=== PATIENT | female | born 1995 | race Caucasian/White ===

== ENCOUNTER 2016-07-04 17:45 | Emergency (ER) | payer OTHER ==
[2016-07-04 17:53] VITALS: BP 107/66; PULSE 87; TEMP 98.2; BMI 26.9
--- NOTE | 2016-07-04 17:55 | PDOC ---
Rapid Medical Evaluation Chief Complaint: Urinary Problem Time Seen by Provider: 07/04/16 17:53 Medical Evaluation: Allergies Allergy/AdvReac Type Severity Reaction Status Date / Time No Known Allergies Allergy Verified 07/04/16 17:54 Vital Signs Temp Pulse Resp BP Pulse Ox 98.2 F 87 18 107/66 97 07/04/16 17:51 07/04/16 17:51 07/04/16 17:51 07/04/16 17:51 07/04/16 17:51 07/04/16 17:54 RME Note: I have performed a brief, in-person evaluation of this patient . This patient presents with CC: dysuria x 2 days Pertinent PE findings are: VSS I have ordered: UA, U preg The patient will proceed to ED for further evaluation. JR
[2016-07-04 18:30] LABS: URINE APPEARANCE CLEAR; URINE BILIRUBIN NEGATIVE (NEGATIVE); URINE COLOR RED; URINE GLUCOSE (UA) 1+ (NEGATIVE); URINE KETONE NEGATIVE (NEGATIVE); URINE LEUK ESTERASE NEGATIVE (NEGATIVE); URINE NITRITE POSITIVE (NEGATIVE); URINE UROBILINOGEN 4.0 E.U/dl E.U./dl (0.2-1.0)
[2016-07-04 18:31] LABS: URINE BLOOD 3+ (NEGATIVE); URINE PROTEIN 2+ (NEGATIVE)
[2016-07-04 18:35] LABS: URINE BACTERIA RARE /hpf (NONE SEEN); URINE MUCUS FEW; URINE RBC 669 /hpf (0-3); URINE WBC 94 /hpf (3-5)
--- NOTE | 2016-07-04 19:05 | PDOC ---
History of Present Illness - General Chief Complaint: Urinary Problem Stated Complaint: URINARY PROBLEM Time Seen by Provider: 07/04/16 17:53 History Source: Patient Exam Limitations: No Limitations - History of Present Illness Travel History: No Initial Comments: 07/04/16 19:00 21 yr female with c/o urianry urgency and burning for 2 days. no fever or chills no back pain or vomiting. no vaginal discharge. 07/04/16 19:01 Timing/Duration: reports: constant Past History - Past Medical History Allergies/Adverse Reactions: Allergies Allergy/AdvReac Type Severity Reaction Status Date / Time No Known Allergies Allergy Verified 07/04/16 17:54 Home Medications: Ambulatory Orders Ibuprofen [Motrin -] 800 mg PO TID #30 tablet 06/27/15 Ciprofloxacin [Cipro -] 250 mg PO BID #6 tablet 07/04/16 Phenazopyridine HCl [Pyridium] 200 mg PO TID PRN #6 tablet 07/04/16 Other medical history: PT DENIES MEDICAL HX - Psycho/Social/Smoking Cessation Hx Suicidal Ideation: No Smoking History: Current some day smoker Number of Cigarettes Smoked Daily: 1 Information on smoking cessation initiated: No Hx Alcohol Use: No Drug/Substance Use Hx: No Substance Use Type: Marijuana Review of Systems - Review of Systems Able to Perform ROS?: Yes Is the patient limited Armenian proficient: No : Yes: Symptoms Reported *Physical Exam - Vital Signs Last Vital Signs Temp Pulse Resp BP Pulse Ox 98.2 F 87 18 107/66 97 07/04/16 17:51 07/04/16 17:51 07/04/16 17:51 07/04/16 17:51 07/04/16 17:51 - Physical Exam General Appearance: Yes: Nourished, Appropriately Dressed HEENT: positive: EOMI, TALIA Neck: negative: Tender Respiratory/Chest: positive: Lungs Clear, Normal Breath Sounds Cardiovascular: positive: Regular Rhythm, Regular Rate Gastrointestinal/Abdominal: positive: Normal Bowel Sounds, Soft. negative: Tender Extremity: positive: Normal Inspection, Normal Range of Motion Integumentary: positive: Normal Color, Dry, Warm ED Treatment Course - ADDITIONAL ORDERS Additional order review: Laboratory Results 07/04/16 18:20 Urine Color Red Urine Appearance Clear Urine pH 5.0 Ur Specific [place] 1.025 Urine Protein 2+ H Urine Glucose (UA) 1+ H Urine Ketones Negative Urine Blood 3+ H Urine Nitrite Positive Urine Bilirubin Negative Urine Urobilinogen 4.0 e.u/dl H Ur Leukocyte Esterase Negative Urine RBC 669 Urine WBC 94 Ur Epithelial Cells Rare Urine Bacteria Rare Urine Mucus Few Urine HCG, Qual Negative Medical Decision Making - Medical Decision Making 07/04/16 19:01 cc: urinary urgency and burning will check UA for UTI afebrile non toxic *DC/Admit/Observation/Transfer Diagnosis at time of Disposition: Urinary tract infection Qualifiers: Urinary tract infection type: acute cystitis Hematuria presence: with hematuria Qualified Code(s): N30.01 - Acute cystitis with hematuria - Discharge Dispostion Disposition: HOME Condition at time of disposition: Good - Prescriptions Prescriptions: Ciprofloxacin [Cipro -] 250 mg PO BID #6 tablet Phenazopyridine HCl [Pyridium] 200 mg PO TID PRN #6 tablet PRN Reason: urinary pain - Patient Instructions Additional Instructions: drink pleanty of water take the pydridium as prescribed for pain take the cipro as directed for 3 days follow with your gynecologosit or primary care in one week
== END 2016-07-04 19:37 | disposition home or self-care (01) ==
LOC: JERFT 17:45
DX: N30.01 Acute cystitis with hematuria (principal)
CPT/HCPCS: 81003; 81015; 84703; 99281-25

== ENCOUNTER 2021-11-10 10:40 | Emergency (ER) | payer OTHER ==
[2021-11-10 11:00] VITALS: BP 117/61; PULSE 108; RESP 20; TEMP 98.5; BMI 31.2
== END 2021-11-10 12:48 | disposition home or self-care (01) ==
LOC: JER 10:40
DX: B34.9 Viral infection, unspecified (principal)
CPT/HCPCS: 0241U-QW; 99283-25